=== PATIENT | male | born 1955 | race Caucasian/White ===

== ENCOUNTER 2018-03-18 13:57 | Inpatient (IN) ==
[2018-03-18] MEDS ORDERED: Ketorolac Inj 30 MG/ML (IVP) Vial IV.PUSH ONE (15:26)
[2018-03-18] MEDS ORDERED: Sod Chloride 0.9% Inj 1,000 ML IV.SIG SCH (15:30)
--- NOTE | 2018-03-18 15:57 | CT ---
EXAM DATE: 03/18/2018 3:29 PM EDT AGE/SEX: 62 years / Male INDICATIONS: Cephalgia. CLINICAL DATA: This is the patient's initial encounter. Patient reports that signs and symptoms have been present for 1 day and indicates a pain score of 3/10. MEDICAL/SURGICAL HISTORY: None. None. RADIATION DOSE: 67.44 CTDI (mGy) COMPARISON: No prior exams available for comparison. TECHNIQUE: CT of the head without contrast. Using automated exposure control and adjustment of the mA and/or kV according to patient size, radiation dose was kept as low as reasonably achievable to ob tain optimal diagnostic quality images. DICOM format image data is available electronically for revi ew and comparison. FINDINGS: Cerebrum: The ventricles are normal for age. No evidence of midline shift, mass lesion, hemorrhage or acute infarction. No extraaxial fluid collections are seen. Posterior Fossa: The cerebellum and brainstem are intact. The 4th ventricle is midline. The cerebe llopontine angle is unremarkable. Extracranial: The visualized portion of the orbits is intact. Skull: The calvaria is intact. No evidence of skull fracture. CONCLUSION: 1. Unremarkable examination. . Electronically signed by: Roberto Huynh MD 03/18/2018 3:56 PM EDT
[2018-03-18 16:45] LABS: Baso % (Auto) 0.4 % (0.0-2.0); Eos # (Auto) 0.1 th/mm3 (0.0-0.4); Eos % (Auto) 0.8 % (0.0-4.0); Hematocrit 43.7 % (39.0-51.0); Hemoglobin 14.6 gm/dL (13.0-17.0); Lymph # (Auto) 1.9 th/mm3 (1.0-4.8); Lymph % (Auto) 16.1 % (9.0-44.0); Mean Corpuscular HGB Conc 33.4 % (32.0-36.0); Mean Corpuscular Hemoglobin 29.9 pg (27.0-34.0); Mean Corpuscular Volume 89.7 fL (80.0-100.0); Mean Platelet Volume 8.1 fL (7.0-11.0); Mono # (Auto) 0.5 th/mm3 (0.0-0.9); Mono % (Auto) 4.6 % (0.0-8.0); Neut % (Auto) 78.1 % (16.0-70.0); Platelet Count 214 th/mm3 (150-450); Red Blood Count 4.87 mil/mm3 (4.50-5.90); Red Cell Distribution Width 13.5 % (11.6-17.2); White Blood Count 11.6 th/mm3 (4.0-11.0)
--- NOTE | 2018-03-18 16:51 | CT ---
EXAM DATE: 03/18/2018 3:29 PM EDT AGE/SEX: 62 years / Male INDICATIONS: Lower back pain. CLINICAL DATA: This is the patient's initial encounter. Patient reports that signs and symptoms have been present for 2 days and indicates a pain score of 5/10. MEDICAL/SURGICAL HISTORY: None. None. RADIATION DOSE: 33.88 CTDI (mGy) COMPARISON: No prior exams available for comparison. TECHNIQUE: Contiguous axial images were acquired with a multirow detector CT scanner without contras t. Multiplanar reconstructions in the sagittal and coronal plane were also performed. Using automate d exposure control and adjustment of the mA and/or kV according to patient size, radiation dose was k ept as low as reasonably achievable to obtain optimal diagnostic quality images. DICOM format image data is available electronically for review and comparison. FINDINGS: ALIGNMENT: Vertebral bodies are satisfactorily aligned without evidence of listhesis. FACET AND OSSEOUS STRUCTURES: Loss of height is noted of the T12 vertebral body. Vertebral body heig ht is otherwise well-maintained. There is no evidence of acute fracture, or destructive changes. Ther e is no significant facet arthropathy. INTERVERTEBRAL DISC SPACES: Mild degenerative disc disease with disc space narrowing is noted. Mild broad-based disc bulge is identified at L2-3. Mild degenerative disc disease is noted at L4-5 and L5-S1 with disc space narrowing and mild posterio r disc osteophyte complex. There is no evidence of focal disc herniation or foraminal encroachment. NEUROLOGIC STRUCTURES: The spinal cord and nerve roots appear normal. There is no evidence of joan milena. . CONCLUSION: 1. Mild degenerative disc disease. 2. No evidence of focal disc herniation, spinal stenosis or neural foraminal encroachment. 3. No evidence of acute bony abnormality 4. Mild chronic appearing compression deformity T12. Electronically signed by: Newton Kent MD 03/18/2018 4:49 PM EDT
[2018-03-18 17:03] LABS: Alanine Aminotransferase 28 U/L (12-78); Albumin 3.9 g/dL (3.4-5.0); Anion Gap 10 meq/L (5-15); Aspartate Aminotransferase 26 U/L (15-37); Blood Urea Nitrogen 8 mg/dL (7-18); Calcium 8.7 mg/dL (8.5-10.1); Carbon Dioxide 25.9 meq/L (21.0-32.0); Chloride 103 meq/L (98-107); Glomerular Filtration Rate 68 mL/min (>89); Glucose,Random 108 mg/dL (74-106); Potassium 3.9 meq/L (3.5-5.1); Sodium 139 meq/L (136-145)
[2018-03-18 17:05] LABS: Alkaline Phosphatase 65 U/L (45-117); Total Protein 7.8 g/dL (6.4-8.2)
--- NOTE | 2018-03-18 17:20 | ED ---
HPI General Chief Complaint: Headache Stated Complaint: Migraine/Lower back pain Time Seen by Provider: 03/18/18 14:58 Source: patient Mode of arrival: ambulatory Limitations: no limitations History of Present Illness HPI Narrative: 62-year-old male presents to the emergency department with complaint of severe headache and low back pain that started last night at approximately 6 PM. Denies history of headaches. He reports cold chills and subjective fever. He was sitting in a hotel last night and does not know if he had an actual fever because he did not have a thermometer to take his temperature. Cannot report a T-max. Denies chest pain or shortness of breath. Denies nausea, vomiting, diarrhea, abdominal pain. Denies IV drug use or cancer. Denies dysuria, change in stool. Denies encopresis, incontinence, saddle anesthesias. Headache is frontal to the back of his head. Denies change in mentation, confusion, disorientation, focal deficits or weakness, slurred speech. Reports numbness and tingling and pain that radiates down his left leg from his lower back. Denies history of sciatica or low back pain. Denies injury. Denies anticoagulant therapy. Has taken Tylenol without relief of symptoms. Rates pain 10/10. Pain is constant. No known relieving or aggravating factors. History of meningitis in 1994. Traveled to [facility] 8 weeks ago for 4 days. Primary care provider is Dr. Gonzalez. No known allergies. Denies significant past medical history. Has no other medical complaints. No other modifying factors or associated signs and symptoms. Related Data Home Medications Medication Instructions Recorded Confirmed No Known Home Medications 03/18/18 03/18/18 Allergies Allergy/AdvReac Type Severity Reaction Status Date / Time iodine Allergy Severe Anaphylaxis Unverified 02/06/17 02:29 potassium iodide Allergy Severe Anaphylaxis Unverified 02/06/17 02:29 povidone-iodine Allergy Severe Anaphylaxis Unverified 02/06/17 02:29 shellfish derived Allergy Severe Anaphylaxis Unverified 02/06/17 02:29 sodium iodide Allergy Severe Anaphylaxis Unverified 02/06/17 02:29 sodium iodide Allergy Severe Anaphylaxis Unverified 02/06/17 02:29 Review of Systems ROS: all other systems reviewed are negative [facility] Medical History Medical History Migraine (Acute) Surgical History Surgical History H/O rotator cuff surgery (Acute) Family History Family History Mother Alzheimer disease Father Advanced age Social History Social History Substance History: No History of Abuse Smoking Status: Never smoker How Often Do You Have a Drink Containing Alcohol: Monthly or less Recent Out of Country Travel within the Last 8 Weeks: Yes Immunization History Tetanus Immunization: >5 Years Hx Influenza Vaccine This Season: No Exam Narrative Exam Narrative: GENERAL: Well-nourished, well-developed male patient, in no acute distress; appears very painful and uncomfortable SKIN: Warm and dry. HEAD: Atraumatic. Normocephalic. No facial droop noted. Tongue midline. Shoulder shrug equal. Finger to nose test normal. EYES: Pupils equal and round at 3 mm with brisk reaction. No scleral icterus. No injection or drainage. PERRLA. EOMI. ENT: Mucosa pink and moist. Airway patent. NECK: Trachea midline. No lymphadenopathy. CARDIOVASCULAR: Regular rate. RESPIRATORY: No accessory muscle use. GASTROINTESTINAL: Flat. MUSCULOSKELETAL: Bilateral lower extremities supple and non-tense with 2+ pedal pulses and sensory intact; with full range of motion and 5/5 strength. Active dorsiflexion and extension of bilateral feet. Bilateral straight leg raise is positive for low back pain; worse left than right. Ambulatory in room with guarded gait. Sitting up in bed at 90. No obvious deformities. No clubbing. No cyanosis. No edema. BACK: Midline point tenderness on palpation of the lumbar spine. Tenderness on palpation of bilateral musculature of lower back; worse to left lumbar paraspinal and iliosacral area. No obvious deformities. NEUROLOGICAL: Awake and alert. Oriented 4. No obvious cranial nerve deficits. Motor grossly within normal limits. Normal speech. No ataxia. No mid -line drift. No upper or lower extremity drift. [employer] strength equal bilaterally. Sensory intact and equal bilaterally. Moves all extremities. Active plantar and dorsiflexion and strength equal bilaterally. 5/5 strength to all extremities. PSYCHIATRIC: Appropriate mood and affect; insight and judgment normal. Course Initial Documented Vital Signs Temperature 98.6 F 03/18/18 14:04 Pulse Rate 87 03/18/18 14:04 Respiratory Rate 18 03/18/18 14:04 Blood Pressure 186/86 H 03/18/18 14:04 Pulse Oximetry 99 03/18/18 14:04 Last Documented Vital Signs Temperature 98.6 F 03/18/18 14:04 Pulse Rate 87 03/18/18 14:04 Respiratory Rate 22 03/18/18 14:26 Blood Pressure 186/86 H 03/18/18 14:04 Pulse Oximetry 99 03/18/18 14:04 Medical Decision Making MDM Narrative Medical decision making narrative: 62-year-old male with severe headache, low back pain, hot and cold chills since approximately 6 PM last night. His neuro exam is unremarkable. He appears to be very painful and uncomfortable. He is afebrile. He has history of meningitis in 1994. He was recently in [facility], 8 weeks ago, for 4 days[address] D[address] patient with Dr. Weiss and plan of care discussed. CT head, CT lumbar spine, CBC, BMP, malaria smear, influenza, IV, IV fluids, Toradol ordered. Dr. Weiss will perform LP. 1700: CT head unremarkable. Dr. Weiss performed LP at the bedside. 1717: CT abdomen/pelvis conclude: mild degenerative disc disease.2. No evidence of focal disc herniation, spinal stenosis or neural foraminal encroachment.3. No evidence of acute bony abnormality4. Mild chronic appearing compression deformity T12. 1845: Lines and negative. Preliminary malaria smear negative. Patient was sign out to me Dr. Naseren Chacko to follow up on CSF results. CSF WBC 122. RBC 47. RBC has decreased to 6 in tube 4 so it is not subarachnoid hemorrhage. Protein is elevated at 141.7. Impression is more viral meningitis. Will cover with IV acyclovir for now and have ID evaluate patient. His headache had improved after toradol but is now returning. Pt did have a history of meningitis but does not know which type it was. Discussed with Dr. Ramos and accepted to his service. Medical Screen Exam Complete: Yes Emergency Medical Condition: Yes Lab Data Result diagrams: 03/18/18 16:15 03/18/18 16:15 Lab Results 03/18/18 03/18/18 03/18/18 Range/Units 16:15 16:15 17:15 WBC 11.6 H (4.0-11.0) th/mm3 RBC 4.87 (4.50-5.90) mil/mm3 Hgb 14.6 (13.0-17.0) gm/dL Hct 43.7 (39.0-51.0) % MCV 89.7 (80.0-100.0) fL MCH 29.9 (27.0-34.0) pg MCHC 33.4 (32.0-36.0) % RDW 13.5 (11.6-17.2) % Plt Count 214 (150-450) th/mm3 MPV 8.1 (7.0-11.0) fL Neut % (Auto) 78.1 H (16.0-70.0) % Lymph % (Auto) 16.1 (9.0-44.0) % Weld % (Auto) 4.6 (0.0-8.0) % Eos % (Auto) 0.8 (0.0-4.0) % Baso % (Auto) 0.4 (0.0-2.0) % Neut # (Auto) 9.0 H (1.8-7.7) th/mm3 Lymph # (Auto) 1.9 (1.0-4.8) th/mm3 Weld # (Auto) 0.5 (0.0-0.9) th/mm3 Eos # (Auto) 0.1 (0.0-0.4) th/mm3 Baso # (Auto) 0.0 (0.0-0.2) th/mm3 WBC Differential . Differential Comment Auto diff final Sodium 139 (136-145) meq/L Potassium 3.9 (3.5-5.1) meq/L Chloride 103 (98-107) meq/L Carbon Dioxide 25.9 (21.0-32.0) meq/L Anion Gap 10 (5-15) meq/L BUN 8 (7-18) mg/dL Creatinine 1.10 (0.60-1.30) mg/dL Estimated GFR 68 L (>89) mL/min Random Glucose 108 H (74-106) mg/dL Calcium 8.7 (8.5-10.1) mg/dL Total Bilirubin 0.6 (0.2-1.0) mg/dL AST 26 (15-37) U/L ALT 28 (12-78) U/L Alkaline Phosphatase 65 (45-117) U/L Total Protein 7.8 (6.4-8.2) g/dL Albumin 3.9 (3.4-5.0) g/dL CSF Volume (1) mL CSF Supernat Color (1) (Clear) CSF Gross Blood (1) (0) CSF WBC (1) (0-10) /mm3 CSF RBC (1) (None) /mm3 CSF Volume (2) mL CSF Supernat Color (2) (Clear) CSF Gross Blood (2) (0) CSF Volume (3) mL CSF Supernat Color (3) (Clear) CSF Gross Blood (3) (0) CSF Volume (4) mL CSF Supernat Color (4) (Clear) CSF Gross Blood (4) (0) CSF WBC (4) 127 H (0-10) /mm3 CSF RBC (4) 6 H (None) /mm3 CSF Neutrophils % % CSF Lymphocytes % % CSF Monocytes % % CSF Glucose (40-80) mg/dL CSF Total Protein (15.0-45.0) mg/dL 03/18/18 03/18/18 03/18/18 Range/Units 17:15 17:15 17:15 WBC (4.0-11.0) th/mm3 RBC (4.50-5.90) mil/mm3 Hgb (13.0-17.0) gm/dL Hct (39.0-51.0) % MCV (80.0-100.0) fL MCH (27.0-34.0) pg MCHC (32.0-36.0) % RDW (11.6-17.2) % Plt Count (150-450) th/mm3 MPV (7.0-11.0) fL Neut % (Auto) (16.0-70.0) % Lymph % (Auto) (9.0-44.0) % Weld % (Auto) (0.0-8.0) % Eos % (Auto) (0.0-4.0) % Baso % (Auto) (0.0-2.0) % Neut # (Auto) (1.8-7.7) th/mm3 Lymph # (Auto) (1.0-4.8) th/mm3 Weld # (Auto) (0.0-0.9) th/mm3 Eos # (Auto) (0.0-0.4) th/mm3 Baso # (Auto) (0.0-0.2) th/mm3 WBC Differential Differential Comment Sodium (136-145) meq/L Potassium (3.5-5.1) meq/L Chloride (98-107) meq/L Carbon Dioxide (21.0-32.0) meq/L Anion Gap (5-15) meq/L BUN (7-18) mg/dL Creatinine (0.60-1.30) mg/dL Estimated GFR (>89) mL/min Random Glucose (74-106) mg/dL Calcium (8.5-10.1) mg/dL Total Bilirubin (0.2-1.0) mg/dL AST (15-37) U/L ALT (12-78) U/L Alkaline Phosphatase (45-117) U/L Total Protein (6.4-8.2) g/dL Albumin (3.4-5.0) g/dL CSF Volume (1) 0.8 mL CSF Supernat Color (1) Clear (Clear) CSF Gross Blood (1) 0 (0) CSF WBC (1) 122 H (0-10) /mm3 CSF RBC (1) 47 H (None) /mm3 CSF Volume (2) 0.8 mL CSF Supernat Color (2) Clear (Clear) CSF Gross Blood (2) 0 (0) CSF Volume (3) 0.8 mL CSF Supernat Color (3) Clear (Clear) CSF Gross Blood (3) 0 (0) CSF Volume (4) 0.8 mL CSF Supernat Color (4) Clear (Clear) CSF Gross Blood (4) 0 (0) CSF WBC (4) 127 H (0-10) /mm3 CSF RBC (4) 6 H (None) /mm3 CSF Neutrophils % 4 % CSF Lymphocytes % 84 % CSF Monocytes % 12 % CSF Glucose 52 (40-80) mg/dL CSF Total Protein 141.7 H (15.0-45.0) mg/dL Imaging Data Radiologist's impression: Head CT 03/18/18 15:19 CONCLUSION: 1. Unremarkable examination. . Lumbar Spine CT 03/18/18 15:19 CONCLUSION: 1. Mild degenerative disc disease. 2. No evidence of focal disc herniation, spinal stenosis or neural foraminal encroachment. 3. No evidence of acute bony abnormality 4. Mild chronic appearing compression deformity T12. Discharge Plan Discharge Disposition Patient Disposition: 30 Still Patient Discharge Details Diagnosis: Viral meningitis Physicians Team ED Provider: Nasreen Chacko Primary Care Provider: Primary Care Deysi Kimble Attending Provider: Tom Ramos Other Providers: Rhea Pearson ; Percy Clemons Status ED Status: Admitted Observation Patient
[2018-03-18 19:15] LABS: RBC on Tube 4 6 /mm3
[2018-03-18 19:16] LABS: RBC on Tube 1 47 /mm3
[2018-03-18 19:19] LABS: Lymphocytes, CSF 84 %; Monocytes,CSF 12 %; Neutrophils,CSF 4 %
[2018-03-18 19:22] LABS: RBC on Tube 4 6 /mm3
[2018-03-18] MEDS: SODIUM CHLOR 0.9% IV.SIG SCH (20:56)
[2018-03-18] MEDS: ACYCLOVIR IV.SIG SCH (20:56)
[2018-03-18] MEDS ORDERED: Morphine Sulfate Inj 2 MG/ML Vial IV.PUSH ONE (22:21)
[2018-03-18] MEDS ORDERED: Sodium Chloride 0.9% 2 ML Flush PRN IV.FLUSH (22:25)
--- NOTE | 2018-03-18 22:33 | P.HPIM ---
History of Present Illness Primary Care Physician: No Primary Care Physician History of Present Illness: 52-year-old male with a history of meningitis in 1994 who presents with onset of progressively worsening headache described as throbbing whole head pain radiating down his back. He also endorses light sensitivity, subjective fevers since last night. He reports generalized weakness as well as weakness in bilateral legs. No focal symptoms. Review of Systems All other systems reviewed negative except as stated in HPI PMFSH - History History Provided By: Patient - Medical History Medical History: Medical History (Last Reviewed 03/18/18 @ 17:30 by DEON Barker) Migraine - Surgical History Surgical History: Surgical History (Last Updated 03/18/18 @ 22:28 by Tom Ramos MD) H/O rotator cuff surgery - Family History Family History: Family History (Last Updated 03/18/18 @ 22:28 by Tom Ramos MD) Mother Alzheimer disease Father Advanced age - Tobacco History Smoking Status: Never smoker - Alcohol History How Often Do You Have a Drink Containing Alcohol: Monthly or less - Substance Use History Substance History: No History of Abuse - Travel History Recent Travel Out of the Country Within the Last 8 Weeks: Yes - Immunization History Tetanus Immunization: >5 Years Hx Influenza Vaccine This Season: No Medications and Allergies Active Medications: Active Medications Sodium Chloride (Ns Inj) 1,000 mls @ 0 mls/hr IV.SIG BOLUS EZIO Last Infusion: 03/18/18 19:32 Dose: Infused Acyclovir Sodium 855 mg/ (Sodium Chloride) 167.1 mls @ 167.1 mls/hr IV.SIG Q8H EZIO Last Infusion: 03/18/18 22:14 Dose: Infused Morphine Sulfate (Morphine Inj) 2 mg IV.PUSH ONCE ONE Stop: 03/18/18 22:22 Allergies Allergy/AdvReac Type Severity Reaction Status Date / Time iodine Allergy Severe Anaphylaxis Unverified 02/06/17 02:29 potassium iodide Allergy Severe Anaphylaxis Unverified 02/06/17 02:29 povidone-iodine Allergy Severe Anaphylaxis Unverified 02/06/17 02:29 shellfish derived Allergy Severe Anaphylaxis Unverified 02/06/17 02:29 sodium iodide Allergy Severe Anaphylaxis Unverified 02/06/17 02:29 sodium iodide Allergy Severe Anaphylaxis Unverified 02/06/17 02:29 Home Medications Medication Instructions Recorded Confirmed Type No Known Home Medications 03/18/18 03/18/18 History Exam Vital signs: Vital Signs 03/18/18 14:04 03/18/18 14:26 Temperature 98.6 F Pulse Rate 87 Respiratory Rate 18 22 Blood Pressure 186/86 H Pulse Oximetry 99 Intake & Output 03/18/18 03/18/18 03/19/18 06:59 18:59 06:59 Intake Total 1167.1 / 1167.1 Balance 1167.1 / 1167.1 Weight 85.275 kg Intake: IV 1167.1 / 1167.1 Zovirax Inj 855 MG In NS Inj 167.1 / 167.1 150 ML @ 167.1 mls/hr IV.SIG Q8H EZIO Rx#:[id number] NS Inj 1,000 ML @ Wide Open IV. 1000 / 1000 SIG BOLUS EZIO Rx#:[id number] Narrative: GENERAL: Patient lying in bed. Appears uncomfortable. Alert and oriented 3. SKIN: Warm and dry. HEAD: Atraumatic. Normocephalic. EYES: Pupils equal and round. No scleral icterus. No injection or drainage. ENT: No nasal bleeding or discharge. Mucous membranes pink and moist. NECK: Trachea midline. No JVD. CARDIOVASCULAR: Regular rate and rhythm. RESPIRATORY: No accessory muscle use. Clear to auscultation. Breath sounds equal bilaterally. GASTROINTESTINAL: Abdomen soft, non-tender, nondistended. Hepatic and splenic margins not palpable. MUSCULOSKELETAL: Extremities without clubbing, cyanosis, or edema. No obvious deformities. NEUROLOGICAL: Awake and alert. No obvious cranial nerve deficits. Motor grossly within normal limits. Five out of 5 muscle strength in the arms and legs. Normal speech. PSYCHIATRIC: Appropriate mood and affect; insight and judgment normal. Results - Labs CBC & Chem 7: 03/18/18 16:15 03/18/18 16:15 Labs: Short CBC 03/18/18 Range/Units 16:15 WBC 11.6 H (4.0-11.0) th/mm3 Hgb 14.6 (13.0-17.0) gm/dL Hct 43.7 (39.0-51.0) % Plt Count 214 (150-450) th/mm3 BMP 03/18/18 16:15 Sodium 139 Potassium 3.9 Chloride 103 Carbon Dioxide 25.9 BUN 8 Creatinine 1.10 Calcium 8.7 Liver Function 03/18/18 Range/Units 16:15 Total Bilirubin 0.6 (0.2-1.0) mg/dL AST 26 (15-37) U/L ALT 28 (12-78) U/L Alkaline Phosphatase 65 (45-117) U/L Albumin 3.9 (3.4-5.0) g/dL - Imaging Impressions Head CT 03/18/18 15:19 CONCLUSION: 1. Unremarkable examination. . Lumbar Spine CT 03/18/18 15:19 CONCLUSION: 1. Mild degenerative disc disease. 2. No evidence of focal disc herniation, spinal stenosis or neural foraminal encroachment. 3. No evidence of acute bony abnormality 4. Mild chronic appearing compression deformity T12. Caprini VTE Risk Assessment Caprini VTE Risk Assessment: Moderate/High Risk (score >= 2) Caprini Risk Assessment Model: Point Value = 1 Point Value = 2 Point Value = 3 Point Value = 5 Age 41-60 Minor surgery BMI > 25 kg/m2 Swollen legs Varicose veins or History of unexplained or recurrent spontaneous Oral contraceptives or hormone replacement Sepsis (< 1 month) Serious lung disease, including pneumonia (< 1 month) Abnormal pulmonary function Acute myocardial infarction Congestive heart failure (< 1 month) History of inflammatory bowel disease Medical patient at bed rest Age 61-74 Arthroscopic surgery Major open surgery (> 45 min) Laparoscopic surgery (> 45 min) Malignancy Confined to bed (> 72 hours) Immobilizing plaster cast Central venous access Age >= 75 History of VTE Family history of VTE Factor V Leiden Prothrombin [id number] Lupus anticoagulant Anticardiolipin antibodies Elevated serum homocysteine Heparin-induced thrombocytopenia Other congenital or acquired thrombophilia Stroke (< 1 month) Elective arthroplasty Hip, pelvis, or leg fracture Acute spinal cord injury (< 1 month) Prophylaxis Regimen: Total Risk Factor Score Risk Level Prophylaxis Regimen 0-1 Low Early ambulation 2 Moderate Order ONE of the following: *Sequential Compression Device (SCD) *Heparin 5000 units SQ BID 3-4 Higher Order ONE of the following medications: *Heparin 5000 units SQ TID *Enoxaparin/Lovenox 40 mg SQ daily (WT < 150 kg, CrCl > 30 mL/min) *Enoxaparin/Lovenox 30 mg SQ daily (WT < 150 kg, CrCl > 10-29 mL/min) *Enoxaparin/Lovenox 30 mg SQ BID (WT < 150 kg, CrCl > 30 mL/min) AND/OR *Sequential Compression Device (SCD) 5 or more Highest Order ONE of the following medications: *Heparin 5000 units SQ TID (Preferred with Epidurals) *Enoxaparin/Lovenox 40 mg SQ daily (WT < 150 kg, CrCl > 30 mL/min) *Enoxaparin/Lovenox 30 mg SQ daily (WT < 150 kg, CrCl > 10-29 mL/min) *Enoxaparin/Lovenox 30 mg SQ BID (WT < 150 kg, CrCl > 30 mL/min) AND *Sequential Compression Device (SCD) Assessment and Plan - Plan //Suspected viral meningitis -CT brain with no acute findings. CT lumbar spine with no acute findings. Elevated WBCs, RBCs on CSF with elevated total protein. Will continue on acyclovir. Consult neurology and infectious disease. We will give pain meds when requested. = Followed by ID and neurology recommendations. //Accelerated hypertension. Systolic blood pressures of normal knees. Likely secondary to pain. Will add as needed BP meds. Monitor. Discussed Condition With: Patient, nurse, ED physician.
[2018-03-18] MEDS ORDERED: Bisacodyl 10 MG Supp RECTAL PRN (23:06)
[2018-03-19] MEDS ORDERED: Acetaminophen 325 MG Tablet PO PRN (02:45)
[2018-03-19] MEDS: Sod Chloride 0.9% Inj 1,000 ML IV.CONT SCH ×3 (02:46→20:29)
[2018-03-19] MEDS: SODIUM CHLOR 0.9% IV.SIG SCH ×3 (04:26→21:32)
[2018-03-19] MEDS: ACYCLOVIR IV.SIG SCH ×3 (04:26→21:32)
[2018-03-19 05:59] LABS: Baso # (Auto) 0.1 th/mm3 (0.0-0.2); Baso % (Auto) 0.6 % (0.0-2.0); Eos # (Auto) 0.1 th/mm3 (0.0-0.4); Hematocrit 38.6 % (39.0-51.0); Hemoglobin 13.1 gm/dL (13.0-17.0); Lymph # (Auto) 1.9 th/mm3 (1.0-4.8); Lymph % (Auto) 19.6 % (9.0-44.0); Mean Corpuscular Hemoglobin 30.5 pg (27.0-34.0); Mean Corpuscular Volume 89.7 fL (80.0-100.0); Mean Platelet Volume 7.8 fL (7.0-11.0); Mono # (Auto) 0.6 th/mm3 (0.0-0.9); Neut # (Auto) 7.2 th/mm3 (1.8-7.7); Neut % (Auto) 72.8 % (16.0-70.0); Platelet Count 163 th/mm3 (150-450); Red Cell Distribution Width 12.9 % (11.6-17.2); White Blood Count 9.8 th/mm3 (4.0-11.0)
[2018-03-19 06:35] LABS: Alanine Aminotransferase 22 U/L (12-78); Albumin 3.2 g/dL (3.4-5.0); Alkaline Phosphatase 52 U/L (45-117); Anion Gap 9 meq/L (5-15); Aspartate Aminotransferase 18 U/L (15-37); Blood Urea Nitrogen 10 mg/dL (7-18); Calcium 8.1 mg/dL (8.5-10.1); Carbon Dioxide 24.6 meq/L (21.0-32.0); Chloride 107 meq/L (98-107); Glomerular Filtration Rate 84 mL/min (>89); Glucose,Random 109 mg/dL (74-106); Potassium 3.6 meq/L (3.5-5.1); Sodium 141 meq/L (136-145); Total Protein 6.4 g/dL (6.4-8.2)
[2018-03-19] MEDS: Sodium Chloride 0.9% 2 ML Flush BID IV.FLUSH SCH ×2 (08:37→21:45)
--- NOTE | 2018-03-19 08:42 | P.CONNEU ---
History of Present Illness Service: Neurology Primary Care Provider: No Primary Care Physician Chief Complaint: Possible meningitis History of Present Illness: 62-year-old male admitted for headache and fevers. Onset about 24 hours prior to arrival. Having headache neck pain pain with turning his head side to side pain shooting down his back denies any sick contacts. States he had a similar episode many years ago cleared up. Feeling some dryness in his eyes although no vision loss does have photophobia denies any focal weakness. Has been having a lot of headache pain some spasm pain as well He is feeling better since arrival. Seen by infectious disease had a lumbar puncture performed. Review of Systems All other systems reviewed negative except as stated in HPI PMFSH - History History Provided By: Patient - Medical History Medical History: Medical History (Last Reviewed 03/19/18 @ 13:22 by Rhea Pearson MD) Migraine - Surgical History Surgical History: Surgical History (Last Reviewed 03/19/18 @ 13:22 by Rhea Pearson MD) H/O rotator cuff surgery - Family History Family History: Family History (Last Reviewed 03/19/18 @ 13:22 by Rhea Pearson MD) Mother Alzheimer disease Father Advanced age - Tobacco History Second Hand Smoke Exposure: No Tobacco Use In Past 30 Days: No Smoking Status: Never smoker - Alcohol History How Often Do You Have a Drink Containing Alcohol: 2 to 3 times a week - Substance Use History Substance History: No History of Abuse - Travel History Recent Travel in the [place] Within the Last 8 Weeks: Yes Recent Travel Out of the Country Within the Last 8 Weeks: Yes - Immunization History Tetanus Immunization: >5 Years Hx Influenza Vaccine This Season: No Medications and Allergies Active Medications: Active Medications Acetaminophen (Tylenol) 650 mg PO Q4H PRN PRN Reason: FEVER Last Admin: 03/19/18 02:55 Dose: 650 mg Al Hydroxide/Mg Hydroxide (Milk Of Magnquirino Liq) 30 ml PO Q12H PRN PRN Reason: Mild Constipation Bisacodyl (Dulcolax Supp) 10 mg RECTAL DAILY PRN PRN Reason: SEVERE CONSITIPATION Enalaprilat (Vasotec Inj) 1.25 mg IV.PUSH Q6H PRN PRN Reason: SBP>160, DBP>90 Sodium Chloride (Ns Inj) 1,000 mls @ 0 mls/hr IV.SIG BOLUS EZIO Last Infusion: 03/18/18 19:32 Dose: Infused Acyclovir Sodium 855 mg/ (Sodium Chloride) 167.1 mls @ 167.1 mls/hr IV.SIG Q8H [facility] Last Infusion: 03/19/18 05:27 Dose: Infused Sodium Chloride (Ns Inj) 1,000 mls @ 50 mls/hr IV.CONT .Q20H [facility] Last Admin: 03/19/18 02:56 Dose: 50 mls/hr Lactulose (Lactulose Liq) 30 ml PO DAILY PRN PRN Reason: SEVERE CONSITIPATION Sennosides (Senokot) 17.2 mg PO Q12H PRN PRN Reason: Moderate Constipation Sodium Chloride (Ns Flush) 2 ml IV.FLUSH BID [facility] Last Admin: 03/19/18 08:37 Dose: Not Given Sodium Chloride (Ns Flush) 2 ml IV.FLUSH PRN PRN PRN Reason: FLUSH AFTER USING IV ACCESS Allergies Allergy/AdvReac Type Severity Reaction Status Date / Time iodine Allergy Severe Anaphylaxis Unverified 02/06/17 02:29 potassium iodide Allergy Severe Anaphylaxis Unverified 02/06/17 02:29 povidone-iodine Allergy Severe Anaphylaxis Unverified 02/06/17 02:29 shellfish derived Allergy Severe Anaphylaxis Unverified 02/06/17 02:29 sodium iodide Allergy Severe Anaphylaxis Unverified 02/06/17 02:29 sodium iodide Allergy Severe Anaphylaxis Unverified 02/06/17 02:29 Home Medications Medication Instructions Recorded Confirmed Type No Known Home Medications 03/18/18 03/18/18 History Exam Vital signs: Vital Signs 03/18/18 14:04 03/18/18 14:26 03/19/18 00:59 Temperature 98.6 F 99.3 F Pulse Rate 87 79 Respiratory Rate 18 22 18 Blood Pressure 186/86 H 128/68 Pulse Oximetry 99 03/19/18 02:18 03/19/18 02:39 Temperature 101.4 F H Pulse Rate 77 81 Respiratory Rate 16 17 Blood Pressure 128/60 165/80 H Pulse Oximetry 97 Intake & Output 03/18/18 03/19/18 03/19/18 18:59 06:59 18:59 Intake Total 1334.2 / 1334.2 Balance 1334.2 / 1334.2 Weight 85.275 kg 85.275 kg Intake: IV 1334.2 / 1334.2 Zovirax Inj 855 MG In NS Inj 334.2 / 334.2 150 ML @ 167.1 mls/hr IV.SIG Q8H E[facility] Rx#:[id number] NS Inj 1,000 ML @ Wide Open IV. 1000 / 1000 SIG BOLUS EZIO Rx#:[id number] Other: # Voids 1 Weight On Admission 85.275 kg Narrative: GENERAL: in NAD, laying in the dark due to photophobia SKIN: Warm and dry. HEAD: Atraumatic. Normocephalic. EYES: Pupils equal and round. No scleral icterus. ENT: No nasal bleeding or discharge. Mucous membranes pink and moist. NECK: Trachea midline. No JVD. CARDIOVASCULAR: Regular rate and rhythm. RESPIRATORY: No accessory muscle use. GASTROINTESTINAL: Abdomen soft, non-tender, nondistended. MUSCULOSKELETAL: Extremities without clubbing, cyanosis, or edema. No obvious deformities. NEUROLOGICAL: Awake and alert. No aphasia, mild nuchal rigidity fluent articulate, No facial asymmetry, OU 3-2mm, eomi, VFF, No drift, Motor grossly within normal limits. Five out of 5 muscle strength in the arms and legs. Tone normal in all 4 limbs, Sensory normal, msr 1-2+ sym, no clonus, planterflexor, PSYCHIATRIC: Appropriate mood and affect; insight and judgment normal. - Constitutional no acute distress - Routine HEENT Exam Head: Present: normocephalic Results - Labs CBC & Chem 7: 03/19/18 05:41 03/19/18 05:41 Labs: Laboratory Results - last 24 hr 03/18/18 03/18/18 03/18/18 16:15 16:15 17:15 WBC 11.6 H RBC 4.87 Hgb 14.6 Hct 43.7 MCV 89.7 MCH 29.9 MCHC 33.4 RDW 13.5 Plt Count 214 MPV 8.1 Neut % (Auto) 78.1 H Lymph % (Auto) 16.1 [place] % (Auto) 4.6 Eos % (Auto) 0.8 Baso % (Auto) 0.4 Neut # (Auto) 9.0 H Lymph # (Auto) 1.9 [place] # (Auto) 0.5 Eos # (Auto) 0.1 Baso # (Auto) 0.0 WBC Differential . Differential Comment Auto diff final Sodium 139 Potassium 3.9 Chloride 103 Carbon Dioxide 25.9 Anion Gap 10 BUN 8 Creatinine 1.10 Estimated GFR 68 L Random Glucose 108 H Calcium 8.7 Total Bilirubin 0.6 AST 26 ALT 28 Alkaline Phosphatase 65 Total Protein 7.8 Albumin 3.9 CSF Volume (1) CSF Supernat Color (1) CSF Gross Blood (1) CSF WBC (1) CSF RBC (1) CSF Volume (2) CSF Supernat Color (2) CSF Gross Blood (2) CSF Volume (3) CSF Supernat Color (3) CSF Gross Blood (3) CSF Volume (4) CSF Supernat Color (4) CSF Gross Blood (4) CSF WBC (4) 127 H CSF RBC (4) 6 H CSF Neutrophils % CSF Lymphocytes % CSF Monocytes % CSF Glucose CSF Total Protein 03/18/18 03/18/18 03/18/18 17:15 17:15 17:15 WBC RBC Hgb Hct MCV MCH MCHC RDW Plt Count MPV Neut % (Auto) Lymph % (Auto) [place] % (Auto) Eos % (Auto) Baso % (Auto) Neut # (Auto) Lymph # (Auto) [place] # (Auto) Eos # (Auto) Baso # (Auto) WBC Differential Differential Comment Sodium Potassium Chloride Carbon Dioxide Anion Gap BUN Creatinine Estimated GFR Random Glucose Calcium Total Bilirubin AST ALT Alkaline Phosphatase Total Protein Albumin CSF Volume (1) 0.8 CSF Supernat Color (1) Clear CSF Gross Blood (1) 0 CSF WBC (1) 122 H CSF RBC (1) 47 H CSF Volume (2) 0.8 CSF Supernat Color (2) Clear CSF Gross Blood (2) 0 CSF Volume (3) 0.8 CSF Supernat Color (3) Clear CSF Gross Blood (3) 0 CSF Volume (4) 0.8 CSF Supernat Color (4) Clear CSF Gross Blood (4) 0 CSF WBC (4) 127 H CSF RBC (4) 6 H CSF Neutrophils % 4 CSF Lymphocytes % 84 CSF Monocytes % 12 CSF Glucose 52 CSF Total Protein 141.7 H 03/19/18 03/19/18 05:41 05:41 WBC 9.8 RBC 4.30 L Hgb 13.1 Hct 38.6 L MCV 89.7 MCH 30.5 MCHC 34.0 RDW 12.9 Plt Count 163 MPV 7.8 Neut % (Auto) 72.8 H Lymph % (Auto) 19.6 [place] % (Auto) 6.0 Eos % (Auto) 1.0 Baso % (Auto) 0.6 Neut # (Auto) 7.2 Lymph # (Auto) 1.9 [place] # (Auto) 0.6 Eos # (Auto) 0.1 Baso # (Auto) 0.1 WBC Differential . Differential Comment Auto diff final Sodium 141 Potassium 3.6 Chloride 107 Carbon Dioxide 24.6 Anion Gap 9 BUN 10 Creatinine 0.91 Estimated GFR 84 L Random Glucose 109 H Calcium 8.1 L Total Bilirubin 0.6 AST 18 ALT 22 Alkaline Phosphatase 52 Total Protein 6.4 D Albumin 3.2 L D CSF Volume (1) CSF Supernat Color (1) CSF Gross Blood (1) CSF WBC (1) CSF RBC (1) CSF Volume (2) CSF Supernat Color (2) CSF Gross Blood (2) CSF Volume (3) CSF Supernat Color (3) CSF Gross Blood (3) CSF Volume (4) CSF Supernat Color (4) CSF Gross Blood (4) CSF WBC (4) CSF RBC (4) CSF Neutrophils % CSF Lymphocytes % CSF Monocytes % CSF Glucose CSF Total Protein - Imaging Impressions Head CT 03/18/18 15:19 CONCLUSION: 1. Unremarkable examination. . Lumbar Spine CT 03/18/18 15:19 CONCLUSION: 1. Mild degenerative disc disease. 2. No evidence of focal disc herniation, spinal stenosis or neural foraminal encroachment. 3. No evidence of acute bony abnormality 4. Mild chronic appearing compression deformity T12. Review/Management - Diagnosis (1) Viral meningitis Code(s): A87.9 - Viral meningitis, unspecified Status: Acute Current Visit: Yes - Review/Management Plan: CSF with elevated WBC count, lymphocytic monocytosis, elevated protein and normal glucose. Low-grade fever headache and neck pain Suggestive of viral meningitis Recommendations Follow-up CSF studies Pain control Follow-up ID recommendations
--- NOTE | 2018-03-19 10:20 | P.PN ---
Subjective Interval history: Patient is doing well, reports improved GALLARDO since admission. Patient is tolerating PO, voiding/stooling well. Patient reports continued neck/back pain that improved after getting morphine last night but he prefers PO pain meds if possible. Physical Exam Vital signs: Vital Signs 03/18/18 14:04 03/18/18 14:26 03/19/18 00:59 Temperature 98.6 F 99.3 F Pulse Rate 87 79 Respiratory Rate 18 22 18 Blood Pressure 186/86 H 128/68 Pulse Oximetry 99 03/19/18 02:18 03/19/18 02:39 03/19/18 08:47 Temperature 101.4 F H 99.0 F Pulse Rate 77 81 67 Respiratory Rate 16 17 18 Blood Pressure 128/60 165/80 H 139/63 Pulse Oximetry 97 98 Intake & Output 03/18/18 03/19/18 03/19/18 18:59 06:59 18:59 Intake Total 1334.2 / 1334.2 Balance 1334.2 / 1334.2 Weight 85.275 kg 85.275 kg Intake: IV 1334.2 / 1334.2 Zovirax Inj 855 MG In NS Inj 334.2 / 334.2 150 ML @ 167.1 mls/hr IV.SIG Q8H [facility] Rx#:[id number] NS Inj 1,000 ML @ Wide Open IV. 1000 / 1000 SIG BOLUS EZIO Rx#:[id number] Other: # Voids 1 Weight On Admission 85.275 kg Narrative: GENERAL: well nourished male, in NAD SKIN: Warm and dry. HEAD: Normocephalic. EYES: No scleral icterus. No injection or drainage. NECK: Mildly tender to palpation, limited ROM due to pain. No JVD or lymphadenopathy. CARDIOVASCULAR: Regular rate and rhythm without murmurs, gallops, or rubs. RESPIRATORY: Breath sounds equal bilaterally. No accessory muscle use. GASTROINTESTINAL: Abdomen soft, non-tender, nondistended. MUSCULOSKELETAL: No cyanosis, or edema. BACK: Nontender without obvious deformity. No CVA tenderness. Results - Labs CBC & Chem 7: 03/19/18 05:41 03/19/18 05:41 Laboratory Results - last 24 hr 03/18/18 03/18/18 03/18/18 16:15 16:15 17:15 WBC 11.6 H RBC 4.87 Hgb 14.6 Hct 43.7 MCV 89.7 MCH 29.9 MCHC 33.4 RDW 13.5 Plt Count 214 MPV 8.1 Neut % (Auto) 78.1 H Lymph % (Auto) 16.1 [place] % (Auto) 4.6 Eos % (Auto) 0.8 Baso % (Auto) 0.4 Neut # (Auto) 9.0 H Lymph # (Auto) 1.9 [place] # (Auto) 0.5 Eos # (Auto) 0.1 Baso # (Auto) 0.0 WBC Differential . Differential Comment Auto diff final Sodium 139 Potassium 3.9 Chloride 103 Carbon Dioxide 25.9 Anion Gap 10 BUN 8 Creatinine 1.10 Estimated GFR 68 L Random Glucose 108 H Calcium 8.7 Total Bilirubin 0.6 AST 26 ALT 28 Alkaline Phosphatase 65 Total Protein 7.8 Albumin 3.9 CSF Volume (1) CSF Supernat Color (1) CSF Gross Blood (1) CSF WBC (1) CSF RBC (1) CSF Volume (2) CSF Supernat Color (2) CSF Gross Blood (2) CSF Volume (3) CSF Supernat Color (3) CSF Gross Blood (3) CSF Volume (4) CSF Supernat Color (4) CSF Gross Blood (4) CSF WBC (4) 127 H CSF RBC (4) 6 H CSF Neutrophils % CSF Lymphocytes % CSF Monocytes % CSF Glucose CSF Total Protein 03/18/18 03/18/18 03/18/18 17:15 17:15 17:15 WBC RBC Hgb Hct MCV MCH MCHC RDW Plt Count MPV Neut % (Auto) Lymph % (Auto) [place] % (Auto) Eos % (Auto) Baso % (Auto) Neut # (Auto) Lymph # (Auto) [place] # (Auto) Eos # (Auto) Baso # (Auto) WBC Differential Differential Comment Sodium Potassium Chloride Carbon Dioxide Anion Gap BUN Creatinine Estimated GFR Random Glucose Calcium Total Bilirubin AST ALT Alkaline Phosphatase Total Protein Albumin CSF Volume (1) 0.8 CSF Supernat Color (1) Clear CSF Gross Blood (1) 0 CSF WBC (1) 122 H CSF RBC (1) 47 H CSF Volume (2) 0.8 CSF Supernat Color (2) Clear CSF Gross Blood (2) 0 CSF Volume (3) 0.8 CSF Supernat Color (3) Clear CSF Gross Blood (3) 0 CSF Volume (4) 0.8 CSF Supernat Color (4) Clear CSF Gross Blood (4) 0 CSF WBC (4) 127 H CSF RBC (4) 6 H CSF Neutrophils % 4 CSF Lymphocytes % 84 CSF Monocytes % 12 CSF Glucose 52 CSF Total Protein 141.7 H 03/19/18 03/19/18 05:41 05:41 WBC 9.8 RBC 4.30 L Hgb 13.1 Hct 38.6 L MCV 89.7 MCH 30.5 MCHC 34.0 RDW 12.9 Plt Count 163 MPV 7.8 Neut % (Auto) 72.8 H Lymph % (Auto) 19.6 [place] % (Auto) 6.0 Eos % (Auto) 1.0 Baso % (Auto) 0.6 Neut # (Auto) 7.2 Lymph # (Auto) 1.9 [place] # (Auto) 0.6 Eos # (Auto) 0.1 Baso # (Auto) 0.1 WBC Differential . Differential Comment Auto diff final Sodium 141 Potassium 3.6 Chloride 107 Carbon Dioxide 24.6 Anion Gap 9 BUN 10 Creatinine 0.91 Estimated GFR 84 L Random Glucose 109 H Calcium 8.1 L Total Bilirubin 0.6 AST 18 ALT 22 Alkaline Phosphatase 52 Total Protein 6.4 D Albumin 3.2 L D CSF Volume (1) CSF Supernat Color (1) CSF Gross Blood (1) CSF WBC (1) CSF RBC (1) CSF Volume (2) CSF Supernat Color (2) CSF Gross Blood (2) CSF Volume (3) CSF Supernat Color (3) CSF Gross Blood (3) CSF Volume (4) CSF Supernat Color (4) CSF Gross Blood (4) CSF WBC (4) CSF RBC (4) CSF Neutrophils % CSF Lymphocytes % CSF Monocytes % CSF Glucose CSF Total Protein Microbiology 03/18/18 17:15 Lumbar Puncture Gram Stain - Final 03/18/18 17:15 Lumbar Puncture CSF Culture - Preliminary No growth in 24 hours 03/18/18 16:15 Blood - Peripheral Malaria Smear ([facility]) - Preliminary 03/18/18 17:00 Nasal Wash Influenza Types A,B Antigen - Final Negative for FLU A and B antigen Infection due to influenza A or B cannot be ruled out since the antigen present in the sample may be below the detection limit of the test. - Imaging Impressions Head CT 03/18/18 15:19 CONCLUSION: 1. Unremarkable examination. . Lumbar Spine CT 03/18/18 15:19 CONCLUSION: 1. Mild degenerative disc disease. 2. No evidence of focal disc herniation, spinal stenosis or neural foraminal encroachment. 3. No evidence of acute bony abnormality 4. Mild chronic appearing compression deformity T12. Assessment and Plan - Assessment (1) Viral meningitis Code(s): A87.9 - Viral meningitis, unspecified Status: Acute (2) Elevated blood pressure reading Code(s): R03.0 - Elevated blood-pressure reading, without diagnosis of hypertension Status: Acute - Plan 62-year-old male with no significant past medical history admitted for inpatient management of suspected viral meningitis, HD#2 1. Suspected viral meningitis -CT brain with no acute findings -CT lumbar spine with no acute findings -Leukocytosis on admission with -CSF Findings: Elevated WBCs, RBCs on CSF with elevated total protein -Pending further serology -Cont. Acyclovir IV Q8hrs -Tylenol w/ Codeine Qh6rs PRN pain (patient declines Morphine but does not want plain APAP) -Bld Cx pending -Neurology and Infectious Disease consulted, appreciate assistance with mgmt 2. Elevated BP -No previous Hx, not on meds -Improved, will cont. to monitor 3. Leukocytosis: resolved WBC 11.6 onadmission, 9.8 today Due to Meningitis Bld Cx pending 4. DVT PPX: SCD's 5. Dispo: F/U serology and ID/Neuro reccs Code Status: full Discussed Condition With: patient, RN
[2018-03-19] MEDS: Acetaminophen/Codeine 300/30 MG Tablet PO PRN ×2 (11:21→21:33)
--- NOTE | 2018-03-19 13:07 | P.CONID ---
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 with 122 WBC with lymphocyte predominance and neg g stain, no growth @ 24 hrs malaria stain neg States he had meningitis 30 yrs ago, cant recall what was causing it Review of Systems All other systems reviewed negative except as stated in HPI PMFSH - History History Provided By: Patient - Medical History Medical History: Medical History (Last Reviewed 03/19/18 @ 13:22 by Rhea Pearson MD) Migraine - Surgical History Surgical History: Surgical History (Last Reviewed 03/19/18 @ 13:22 by Rhea Pearson MD) H/O rotator cuff surgery - Family History Family History: Family History (Last Reviewed 03/19/18 @ 13:22 by Rhea Pearson MD) Mother Alzheimer disease Father Advanced age - Social History I have reviewed the patient's Social History: Yes - Tobacco History Second Hand Smoke Exposure: No Tobacco Use In Past 30 Days: No Smoking Status: Never smoker - Alcohol History How Often Do You Have a Drink Containing Alcohol: 2 to 3 times a week - Substance Use History Substance History: No History of Abuse - Travel History Recent Travel in the [place] Within the Last 8 Weeks: Yes Recent Travel Out of the Country Within the Last 8 Weeks: Yes - Immunization History Tetanus Immunization: >5 Years Hx Influenza Vaccine This Season: No Medications and Allergies Active Medications: Active Medications Acetaminophen/Codeine Phosphate (Tylenol W/Cod #3) 1 tab PO Q6H PRN PRN Reason: PAIN 1-10 AND/OR FEVER >101F Last Admin: 03/19/18 11:21 Dose: 1 tab Al Hydroxide/Mg Hydroxide (Milk Of Sharri Liq) 30 ml PO Q12H PRN PRN Reason: Mild Constipation Bisacodyl (Dulcolax Supp) 10 mg RECTAL DAILY PRN PRN Reason: SEVERE CONSITIPATION Enalaprilat (Vasotec Inj) 1.25 mg IV.PUSH Q6H PRN PRN Reason: SBP>160, DBP>90 Sodium Chloride (Ns Inj) 1,000 mls @ 0 mls/hr IV.SIG BOLUS [facility] Last Infusion: 03/18/18 19:32 Dose: Infused Acyclovir Sodium 855 mg/ (Sodium Chloride) 167.1 mls @ 167.1 mls/hr IV.SIG Q8H [facility] Last Infusion: 03/19/18 05:27 Dose: Infused Sodium Chloride (Ns Inj) 1,000 mls @ 50 mls/hr IV.CONT .Q20H [facility] Last Admin: 03/19/18 02:56 Dose: 50 mls/hr Lactulose (Lactulose Liq) 30 ml PO DAILY PRN PRN Reason: SEVERE CONSITIPATION Sennosides (Senokot) 17.2 mg PO Q12H PRN PRN Reason: Moderate Constipation Sodium Chloride (Ns Flush) 2 ml IV.FLUSH BID [facility] Last Admin: 03/19/18 08:37 Dose: Not Given Sodium Chloride (Ns Flush) 2 ml IV.FLUSH PRN PRN PRN Reason: FLUSH AFTER USING IV ACCESS Allergies Allergy/AdvReac Type Severity Reaction Status Date / Time iodine Allergy Severe Anaphylaxis Unverified 02/06/17 02:29 potassium iodide Allergy Severe Anaphylaxis Unverified 02/06/17 02:29 povidone-iodine Allergy Severe Anaphylaxis Unverified 02/06/17 02:29 shellfish derived Allergy Severe Anaphylaxis Unverified 02/06/17 02:29 sodium iodide Allergy Severe Anaphylaxis Unverified 02/06/17 02:29 sodium iodide Allergy Severe Anaphylaxis Unverified 02/06/17 02:29 Home Medications Medication Instructions Recorded Confirmed Type No Known Home Medications 03/18/18 03/18/18 History Exam Vital signs: Vital Signs 03/18/18 14:04 03/18/18 14:26 03/19/18 00:59 Temperature 98.6 F 99.3 F Pulse Rate 87 79 Respiratory Rate 18 22 18 Blood Pressure 186/86 H 128/68 Pulse Oximetry 99 03/19/18 02:18 03/19/18 02:39 03/19/18 08:47 Temperature 101.4 F H 99.0 F Pulse Rate 77 81 67 Respiratory Rate 16 17 18 Blood Pressure 128/60 165/80 H 139/63 Pulse Oximetry 97 98 03/19/18 11:42 03/19/18 12:40 Temperature 99.0 F Pulse Rate 67 Respiratory Rate 18 16 Blood Pressure 129/68 Pulse Oximetry 96 Intake & Output 03/18/18 03/19/18 03/19/18 18:59 06:59 18:59 Intake Total 1334.2 / 1334.2 Balance 1334.2 / 1334.2 Weight 85.275 kg 85.275 kg Intake: IV 1334.2 / 1334.2 Zovirax Inj 855 MG In NS Inj 334.2 / 334.2 150 ML @ 167.1 mls/hr IV.SIG Q8H [facility] Rx#:[id number] NS Inj 1,000 ML @ Wide Open IV. 1000 / 1000 SIG BOLUS [facility] Rx#:[id number] Other: # Voids 1 Weight On Admission 85.275 kg - Constitutional no acute distress, average body habitus - Routine HEENT Exam Head: Present: normocephalic, atraumatic, scalp tenderness Eye: Present: EOMI ENT: Present: mucous membranes moist, oropharynx clear - Routine Neck Exam Present: supple, full ROM - Routine Respiratory Exam Present: CTA bilaterally. Absent: accessory muscle use, decreased breath sounds , rhonchi - Routine Cardiovascular Exam Present: RRR, S1, S2. Absent: murmur, gallop, rubs - Routine Abdominal Exam Present: soft, normoactive bowel sounds. Absent: tenderness, distended, organomegaly, mass - Routine Extremities Exam Absent: cyanosis, clubbing, edema - Routine Skin Exam Present: dry, warm. Absent: intact, rash - Routine Neurological Exam Present: alert, oriented X3, CN II-XII intact, moving all extremities, vision grossly intact, hearing grossly intact, normal speech - Routine Psychiatric Exam Present: normal affect, normal thought process, cooperative Results - Labs CBC & Chem 7: 03/19/18 05:41 03/19/18 05:41 Labs: Laboratory Results - last 24 hr 03/18/18 03/18/18 03/18/18 16:15 16:15 17:15 WBC 11.6 H RBC 4.87 Hgb 14.6 Hct 43.7 MCV 89.7 MCH 29.9 MCHC 33.4 RDW 13.5 Plt Count 214 MPV 8.1 Neut % (Auto) 78.1 H Lymph % (Auto) 16.1 [place] % (Auto) 4.6 Eos % (Auto) 0.8 Baso % (Auto) 0.4 Neut # (Auto) 9.0 H Lymph # (Auto) 1.9 [place] # (Auto) 0.5 Eos # (Auto) 0.1 Baso # (Auto) 0.0 WBC Differential . Differential Comment Auto diff final Sodium 139 Potassium 3.9 Chloride 103 Carbon Dioxide 25.9 Anion Gap 10 BUN 8 Creatinine 1.10 Estimated GFR 68 L Random Glucose 108 H Calcium 8.7 Total Bilirubin 0.6 AST 26 ALT 28 Alkaline Phosphatase 65 Total Protein 7.8 Albumin 3.9 CSF Volume (1) CSF Supernat Color (1) CSF Gross Blood (1) CSF WBC (1) CSF RBC (1) CSF Volume (2) CSF Supernat Color (2) CSF Gross Blood (2) CSF Volume (3) CSF Supernat Color (3) CSF Gross Blood (3) CSF Volume (4) CSF Supernat Color (4) CSF Gross Blood (4) CSF WBC (4) 127 H CSF RBC (4) 6 H CSF Neutrophils % CSF Lymphocytes % CSF Monocytes % CSF Glucose CSF Total Protein 03/18/18 03/18/18 03/18/18 17:15 17:15 17:15 WBC RBC Hgb Hct MCV MCH MCHC RDW Plt Count MPV Neut % (Auto) Lymph % (Auto) [place] % (Auto) Eos % (Auto) Baso % (Auto) Neut # (Auto) Lymph # (Auto) [place] # (Auto) Eos # (Auto) Baso # (Auto) WBC Differential Differential Comment Sodium Potassium Chloride Carbon Dioxide Anion Gap BUN Creatinine Estimated GFR Random Glucose Calcium Total Bilirubin AST ALT Alkaline Phosphatase Total Protein Albumin CSF Volume (1) 0.8 CSF Supernat Color (1) Clear CSF Gross Blood (1) 0 CSF WBC (1) 122 H CSF RBC (1) 47 H CSF Volume (2) 0.8 CSF Supernat Color (2) Clear CSF Gross Blood (2) 0 CSF Volume (3) 0.8 CSF Supernat Color (3) Clear CSF Gross Blood (3) 0 CSF Volume (4) 0.8 CSF Supernat Color (4) Clear CSF Gross Blood (4) 0 CSF WBC (4) 127 H CSF RBC (4) 6 H CSF Neutrophils % 4 CSF Lymphocytes % 84 CSF Monocytes % 12 CSF Glucose 52 CSF Total Protein 141.7 H 03/19/18 03/19/18 05:41 05:41 WBC 9.8 RBC 4.30 L Hgb 13.1 Hct 38.6 L MCV 89.7 MCH 30.5 MCHC 34.0 RDW 12.9 Plt Count 163 MPV 7.8 Neut % (Auto) 72.8 H Lymph % (Auto) 19.6 [place] % (Auto) 6.0 Eos % (Auto) 1.0 Baso % (Auto) 0.6 Neut # (Auto) 7.2 Lymph # (Auto) 1.9 [place] # (Auto) 0.6 Eos # (Auto) 0.1 Baso # (Auto) 0.1 WBC Differential . Differential Comment Auto diff final Sodium 141 Potassium 3.6 Chloride 107 Carbon Dioxide 24.6 Anion Gap 9 BUN 10 Creatinine 0.91 Estimated GFR 84 L Random Glucose 109 H Calcium 8.1 L Total Bilirubin 0.6 AST 18 ALT 22 Alkaline Phosphatase 52 Total Protein 6.4 D Albumin 3.2 L D CSF Volume (1) CSF Supernat Color (1) CSF Gross Blood (1) CSF WBC (1) CSF RBC (1) CSF Volume (2) CSF Supernat Color (2) CSF Gross Blood (2) CSF Volume (3) CSF Supernat Color (3) CSF Gross Blood (3) CSF Volume (4) CSF Supernat Color (4) CSF Gross Blood (4) CSF WBC (4) CSF RBC (4) CSF Neutrophils % CSF Lymphocytes % CSF Monocytes % CSF Glucose CSF Total Protein - Imaging Impressions Head CT 03/18/18 15:19 CONCLUSION: 1. Unremarkable examination. . Lumbar Spine CT 03/18/18 15:19 CONCLUSION: 1. Mild degenerative disc disease. 2. No evidence of focal disc herniation, spinal stenosis or neural foraminal encroachment. 3. No evidence of acute bony abnormality 4. Mild chronic appearing compression deformity T12. Assessment and Plan - Plan Viral meningitis - sp travel to [facility] (stayed in hotel, denies exposures aboutn 8 wks ago) Rec's: dc acyvlovir once neg HSV monitor clinically If self limited will not escalate the w/u
[2018-03-20] MEDS: ACYCLOVIR IV.SIG SCH ×3 (05:16→20:43)
[2018-03-20] MEDS: SODIUM CHLOR 0.9% IV.SIG SCH ×3 (05:16→20:43)
[2018-03-20 05:23] LABS: Baso # (Auto) 0.1 th/mm3 (0.0-0.2); Baso % (Auto) 0.9 % (0.0-2.0); Eos # (Auto) 0.3 th/mm3 (0.0-0.4); Eos % (Auto) 3.3 % (0.0-4.0); Hemoglobin 13.1 gm/dL (13.0-17.0); Lymph # (Auto) 2.6 th/mm3 (1.0-4.8); Lymph % (Auto) 27.2 % (9.0-44.0); Mean Corpuscular HGB Conc 33.6 % (32.0-36.0); Mean Corpuscular Hemoglobin 30.2 pg (27.0-34.0); Mean Corpuscular Volume 90.1 fL (80.0-100.0); Mean Platelet Volume 8.1 fL (7.0-11.0); Mono # (Auto) 0.7 th/mm3 (0.0-0.9); Mono % (Auto) 7.2 % (0.0-8.0); Neut # (Auto) 5.8 th/mm3 (1.8-7.7); Neut % (Auto) 61.4 % (16.0-70.0); Platelet Count 168 th/mm3 (150-450); Red Blood Count 4.33 mil/mm3 (4.50-5.90); Red Cell Distribution Width 13.3 % (11.6-17.2); White Blood Count 9.4 th/mm3 (4.0-11.0)
[2018-03-20] MEDS: Acetaminophen/Codeine 300/30 MG Tablet PO PRN ×3 (05:26→21:31)
[2018-03-20 05:46] LABS: Albumin 3.4 g/dL (3.4-5.0); Anion Gap 5 meq/L (5-15); Aspartate Aminotransferase 26 U/L (15-37); Blood Urea Nitrogen 10 mg/dL (7-18); Calcium 7.8 mg/dL (8.5-10.1); Carbon Dioxide 27.3 meq/L (21.0-32.0); Chloride 108 meq/L (98-107); Glomerular Filtration Rate 80 mL/min (>89); Glucose,Random 104 mg/dL (74-106); Potassium 3.8 meq/L (3.5-5.1); Sodium 140 meq/L (136-145)
[2018-03-20 05:47] LABS: Alanine Aminotransferase 34 U/L (12-78)
[2018-03-20 05:49] LABS: Alkaline Phosphatase 53 U/L (45-117); Total Protein 6.8 g/dL (6.4-8.2)
--- NOTE | 2018-03-20 07:22 | P.PN ---
Subjective Interval history: Patient doing well, tolerating PO, voiding/stooling well. Reports GALLARDO improves with Tylenol. No overnight concerns. Physical Exam Vital signs: Vital Signs 03/19/18 08:47 03/19/18 11:42 03/19/18 12:40 Temperature 99.0 F 99.0 F Pulse Rate 67 67 Respiratory Rate 18 18 16 Blood Pressure 139/63 129/68 Pulse Oximetry 98 96 03/19/18 16:55 03/19/18 20:00 03/20/18 00:00 Temperature 98.8 F 101.1 F H 99.4 F Pulse Rate 67 77 65 Respiratory Rate 18 17 17 Blood Pressure 121/65 138/70 104/51 L Pulse Oximetry 96 96 95 03/20/18 04:00 Temperature 99.6 F Pulse Rate 66 Respiratory Rate 16 Blood Pressure 146/74 H Pulse Oximetry 98 Intake & Output 03/19/18 03/20/18 03/20/18 18:59 06:59 18:59 Intake Total 167.1 / 167.1 1501.1 / 1501.1 Balance 167.1 / 167.1 1501.1 / 1501.1 Intake: IV 167.1 / 167.1 1501.1 / 1501.1 NS Inj 1,000 ML @ 50 mls/hr IV. 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 Acyclovir IV Q8hrs -Tylenol w/ Codeine Qh6rs PRN pain (patient declines Morphine but does not want plain APAP) -Bld Cx pending -Neurology and Infectious Disease consulted, appreciate assistance with mgmt 2. Elevated BP -No previous Hx, not on meds -Improved, will cont. to monitor 3. Leukocytosis: resolved WBC 11.6 on admission, 9.8 today Due to Meningitis Bld Cx pending 4. DVT PPX: SCD's 5. Dispo: Cont. Acyclovir, F/U remaining serology and ID/Neuro reccs Results - Labs CBC & Chem 7: 03/20/18 04:30 03/20/18 04:30 Laboratory Results - last 24 hr 03/20/18 03/20/18 04:30 04:30 WBC 9.4 RBC 4.33 L Hgb 13.1 Hct 39.0 MCV 90.1 MCH 30.2 MCHC 33.6 RDW 13.3 Plt Count 168 MPV 8.1 Neut % (Auto) 61.4 Lymph % (Auto) 27.2 [place] % (Auto) 7.2 Eos % (Auto) 3.3 Baso % (Auto) 0.9 Neut # (Auto) 5.8 Lymph # (Auto) 2.6 [place] # (Auto) 0.7 Eos # (Auto) 0.3 Baso # (Auto) 0.1 WBC Differential . Differential Comment Auto diff final Sodium 140 Potassium 3.8 Chloride 108 H Carbon Dioxide 27.3 Anion Gap 5 BUN 10 Creatinine 0.95 Estimated GFR 80 L Random Glucose 104 Calcium 7.8 L Total Bilirubin 0.4 AST 26 ALT 34 Alkaline Phosphatase 53 C-Reactive Protein Less than 0.29 Total Protein 6.8 Albumin 3.4 Microbiology 03/18/18 17:15 Lumbar Puncture Gram Stain - Final 03/18/18 17:15 Lumbar Puncture CSF Culture - Preliminary No growth in 24 hours Assessment and Plan - Assessment (1) Viral meningitis Code(s): A87.9 - Viral meningitis, unspecified Status: Acute (2) Elevated blood pressure reading Code(s): R03.0 - Elevated blood-pressure reading, without diagnosis of hypertension Status: Acute - Plan 62-year-old male with no significant past medical history admitted for inpatient management of suspected viral meningitis, HD#3 1. Suspected viral meningitis -CT brain with no acute findings -CT lumbar spine with no acute findings -Leukocytosis on admission with -CSF Findings: Elevated WBCs, RBCs on CSF with elevated total protein -CSF Cx: NG @24hrs, Gram stain many WBC's, no organisms -Neg Malaria smear (pre-[place]) -Pending further serology -Cont. Acyclovir IV Q8hrs -Tylenol w/ Codeine Qh6rs PRN pain (patient declines Morphine but does not want plain APAP) -Bld Cx pending -Neurology and Infectious Disease consulted, appreciate assistance with mgmt 2. Elevated BP: improved overnight -No previous Hx, not on meds -Will cont. to monitor 3. Leukocytosis: resolved WBC 11.6 on admission, 9.4 today Due to Meningitis Bld Cx pending 4. DVT PPX: SCD's 5. Dispo: F/U serology and ID/Neuro reccs Code Status: full Discussed Condition With: patient, RN
--- NOTE | 2018-03-20 10:01 | MR ---
EXAM DATE: 03/20/2018 8:07 AM EDT AGE/SEX: 62 years / Male INDICATIONS: Meningitis. Back pain. CLINICAL DATA: This is the patient's subsequent encounter. Patient reports that signs and symptoms h ave been present for 2 days and indicates a pain score of 3/10. MEDICAL/SURGICAL HISTORY: . migraines . rotator cuff surgery COMPARISON: [facility], MR CERVICAL SPINE W/O CONTRAST, 01/26/2016. . TECHNIQUE: Multiplanar, multisequence MRI of the thoracic spine was performed without and with 8.5 m l Gadavist (gadobutrol) contrast as a single exam dose. FINDINGS: VERTEBRAE: Normal vertebral body height. Homogeneous marrow signal. Diffuse disc desiccation. ALIGNMENT: Normal. CORD: Normal position and configuration. POST-CONTRAST: No abnormal areas of enhancement are seen. T1-T2: Normal. T2-T3: The thecal sac has a normal diameter. No evidence of disc bulge or protrusion. T3-T4: The thecal sac has a normal diameter. No evidence of disc bulge or protrusion. T4-T5: The thecal sac has a normal diameter. No evidence of disc bulge or protrusion. T5-T6: The thecal sac has a normal diameter. No evidence of disc bulge or protrusion. T6-T7: Left paracentral posterior disc osteophytes effacing the left lateral recess. There is some f lattening of the left cord without significant cord signal abnormality. No significant neural foramin al stenosis. T7-T8: The thecal sac has a normal diameter. No evidence of disc bulge or protrusion. T8-T9: Right paracentral disc osteophyte complex effacing the anterior right lateral recess. No sign ificant neural foraminal stenosis. T9-T10: Left paracentral posterior disc osteophytes effacing the anterior left lateral recess. There is residual CSF signal anterior to the cord. No significant neural foraminal stenosis. T10-T11: Left paracentral disc protrusion effacing the left anterior lateral recess. There is residu al CSF signal anterior to the cord. No significant neural foraminal stenosis. T11-T12: The thecal sac has a normal diameter. No evidence of disc bulge or protrusion. T12-L1: The thecal sac has a normal diameter. No evidence of disc bulge or protrusion. CONCLUSION: 1. No abnormal contrast enhancement or cord signal abnormality. 2. Multilevel degenerative spondylosis with primarily left-sided paracentral disc protrusions and os teophytes resulting in effacement of the left lateral recess most prominently at T6-7 with mass effec t on the cord but no significant cord edema. 3. Please see above for detailed description of each level. Electronically signed by: Micah Pelaez MD 03/20/2018 10:00 AM EDT
[2018-03-20] MEDS ORDERED: Gadobutrol PF 10 MMOL/10 ML Vial (for RAD) IV.SIG ONE (10:50)
[2018-03-20] MEDS: Sodium Chloride 0.9% 2 ML Flush BID IV.FLUSH SCH ×2 (11:50→20:44)
--- NOTE | 2018-03-20 14:48 | P.PNID ---
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 no fever improved GALLARDO denies any genital lesions Antibiotics: acyclovir Allergies/Adverse Reactions: Allergies iodine Allergy (Severe, Verified 03/20/18 13:55) Anaphylaxis potassium iodide Allergy (Severe, Verified 03/20/18 13:55) Anaphylaxis povidone-iodine Allergy (Severe, Verified 03/20/18 13:55) Anaphylaxis shellfish derived Allergy (Severe, Verified 03/20/18 13:55) Anaphylaxis sodium iodide Allergy (Severe, Verified 03/20/18 13:55) Anaphylaxis sodium iodide Allergy (Severe, Verified 03/20/18 13:55) Anaphylaxis Objective Vital Signs 03/19/18 16:55 03/19/18 20:00 03/20/18 00:00 Temperature 98.8 F 101.1 F H 99.4 F Pulse Rate 67 77 65 Respiratory Rate 18 17 17 Blood Pressure 121/65 138/70 104/51 L Pulse Oximetry 96 96 95 03/20/18 04:00 03/20/18 08:45 03/20/18 12:04 Temperature 99.6 F 98.5 F 98.2 F Pulse Rate 66 68 70 Respiratory Rate 16 16 18 Blood Pressure 146/74 H 155/70 H 136/75 Pulse Oximetry 98 98 98 Intake & Output 03/19/18 03/20/18 03/20/18 18:59 06:59 18:59 Intake Total 167.1 / 167.1 1501.1 / 1501.1 Balance 167.1 / 167.1 1501.1 / 1501.1 Intake: IV 167.1 / 167.1 1501.1 / 1501.1 NS Inj 1,000 ML @ 50 mls/hr IV. 1000 / 1000 CONT .Q20H [facility] Rx#:[id number] Zovirax Inj 855 MG In NS Inj 167.1 / 167.1 501.1 / 501.1 150 ML @ 167.1 mls/hr IV.SIG Q8H [facility] Rx#:[id number] Other: # Voids 3 03/19/18 10:43 Blood - Peripheral Aerobic Blood Culture - Preliminary No growth in 1 day 03/19/18 10:43 Blood - Peripheral Anaerobic Blood Culture - Preliminary No growth in 1 day 03/19/18 10:37 Blood - Peripheral Aerobic Blood Culture - Preliminary No growth in 1 day 03/19/18 10:37 Blood - Peripheral Anaerobic Blood Culture - Preliminary No growth in 1 day 03/18/18 17:15 Lumbar Puncture Gram Stain - Final 03/18/18 17:15 Lumbar Puncture CSF Culture - Preliminary No growth in 48 hours 03/18/18 16:15 Blood - Peripheral Malaria Smear ([facility]) - Preliminary 03/18/18 17:00 Nasal Wash Influenza Types A,B Antigen - Final Negative for FLU A and B antigen Infection due to influenza A or B cannot be ruled out since the antigen present in the sample may be below the detection limit of the test. Lab - Hematology Results 03/18/18 03/19/18 03/20/18 16:15 05:41 04:30 WBC 11.6 H 9.8 9.4 RBC 4.87 4.30 L 4.33 L Hgb 14.6 13.1 13.1 Hct 43.7 38.6 L 39.0 MCV 89.7 89.7 90.1 MCH 29.9 30.5 30.2 MCHC 33.4 34.0 33.6 RDW 13.5 12.9 13.3 Plt Count 214 163 168 MPV 8.1 7.8 8.1 Neut % (Auto) 78.1 H 72.8 H 61.4 Lymph % (Auto) 16.1 19.6 27.2 Walsh % (Auto) 4.6 6.0 7.2 Eos % (Auto) 0.8 1.0 3.3 Baso % (Auto) 0.4 0.6 0.9 Neut # (Auto) 9.0 H 7.2 5.8 Lymph # (Auto) 1.9 1.9 2.6 Walsh # (Auto) 0.5 0.6 0.7 Eos # (Auto) 0.1 0.1 0.3 Baso # (Auto) 0.0 0.1 0.1 WBC Differential . . . Differential Comment Auto diff final Auto diff final Auto diff final Lab - Chemistry Results 03/18/18 03/19/18 03/20/18 16:15 05:41 04:30 Sodium 139 141 140 Potassium 3.9 3.6 3.8 Chloride 103 107 108 H Carbon Dioxide 25.9 24.6 27.3 Anion Gap 10 9 5 BUN 8 10 10 Creatinine 1.10 0.91 0.95 Estimated GFR 68 L 84 L 80 L Random Glucose 108 H 109 H 104 Calcium 8.7 8.1 L 7.8 L Total Bilirubin 0.6 0.6 0.4 AST 26 18 26 ALT 28 22 34 Alkaline Phosphatase 65 52 53 C-Reactive Protein Less than 0.29 Total Protein 7.8 6.4 D 6.8 Albumin 3.9 3.2 L D 3.4 Imaging: ITS Impressions Head CT 03/18/18 15:19 CONCLUSION: 1. Unremarkable examination. . Lumbar Spine CT 03/18/18 15:19 CONCLUSION: 1. Mild degenerative disc disease. 2. No evidence of focal disc herniation, spinal stenosis or neural foraminal encroachment. 3. No evidence of acute bony abnormality 4. Mild chronic appearing compression deformity T12. Thoracic Spine MRI 03/20/18 00:00 CONCLUSION: 1. No abnormal contrast enhancement or cord signal abnormality. 2. Multilevel degenerative spondylosis with primarily left-sided paracentral disc protrusions and osteophytes resulting in effacement of the left lateral recess most prominently at T6-7 with mass effect on the cord but no significant cord edema. 3. Please see above for detailed description of each level. Physical Exam: GENERAL: NAD SKIN: Warm and dry. HEAD: Atraumatic. Normocephalic. EYES: Pupils equal and round. No scleral icterus. No injection or drainage. ENT: No nasal bleeding or discharge. Mucous membranes pink and moist. NECK: Trachea midline. Supple CARDIOVASCULAR: Regular rate and rhythm. RESPIRATORY: No accessory muscle use. Clear to auscultation. Breath sounds equal bilaterally. GASTROINTESTINAL: Abdomen soft, non-tender, nondistended. Hepatic and splenic margins not palpable. MUSCULOSKELETAL: Extremities without clubbing, cyanosis, or edema. No obvious deformities. NEUROLOGICAL: Awake and alert. Non focal PSYCHIATRIC: Appropriate mood and affect; insight and judgment normal. Assessment and Plan - Plan HSV meningitis - sp travel to [facility] (stayed in hotel, denies exposures aboutn 8 wks ago) Rec's: cont acyvlovir @ current dose can be switched to an oral agent on discharge for a total of 10 to 14 days of treatment monitor clinically dw Dr Doll
[2018-03-20] MEDS: Sod Chloride 0.9% Inj 1,000 ML IV.CONT SCH (15:56)
[2018-03-21 01:29] VITALS: TEMP 98
[2018-03-21] MEDS: Acetaminophen/Codeine 300/30 MG Tablet PO PRN ×2 (02:02→10:43)
[2018-03-21] MEDS: SODIUM CHLOR 0.9% IV.SIG SCH ×2 (05:44→13:00)
[2018-03-21] MEDS: ACYCLOVIR IV.SIG SCH ×2 (05:44→13:00)
[2018-03-21 09:07] VITALS: RESP 16
[2018-03-21] MEDS: Sodium Chloride 0.9% 2 ML Flush BID IV.FLUSH SCH (09:22)
--- NOTE | 2018-03-21 11:28 | P.PN ---
Subjective Interval history: Is in bed appears in not acute distress. Less headaches. No back pain. No change in vision. Denies fever or chills. No nausea or vomiting he is able to eat. Feels comfortable to go home. With multiple questions all answered to best of my ability. Physical Exam Vital signs: Vital Signs 03/20/18 12:04 03/20/18 16:12 03/20/18 18:00 Temperature 98.2 F 99.1 F 98.5 F Pulse Rate 70 68 65 Respiratory Rate 18 19 Blood Pressure 136/75 135/65 171/89 H Pulse Oximetry 98 97 97 03/20/18 20:00 03/21/18 00:00 03/21/18 08:00 Temperature 97.7 F 98.0 F 98.0 F Pulse Rate 73 63 68 Respiratory Rate 18 18 16 Blood Pressure 174/76 H 113/58 L 136/80 Pulse Oximetry 97 95 99 Intake & Output 03/20/18 03/21/18 03/21/18 18:59 06:59 18:59 Intake Total 550 / 550 570 / 570 150 / 150 Balance 550 / 550 570 / 570 150 / 150 Weight 85.9 kg Intake: IV 550 / 550 450 / 450 150 / 150 NS Inj 1,000 ML @ 50 mls/hr IV. 400 / 400 CONT .Q20H E[facility] Rx#:[id number] Zovirax Inj 855 MG In NS Inj 150 / 150 450 / 450 150 / 150 150 ML @ 167.1 mls/hr IV.SIG Q8H EZIO Rx#:[id number] Oral 120 / 120 Other: # Voids 1 2 Narrative: GENERAL: very pleasant 62 yo male, well nourished, well developed patient, appears in nad. HEAD: No neck rigidity. Atraumatic. Normocephalic. EYES: Pupils equal and round. No scleral icterus. No injection or drainage. ENT: No nasal bleeding or discharge. Mucous membranes pink and moist. NECK: Trachea midline. No JVD. CARDIOVASCULAR: Regular rate and rhythm. RESPIRATORY: No accessory muscle use. Clear to auscultation. Breath sounds equal bilaterally. GASTROINTESTINAL: Abdomen soft, non-tender, nondistended. Hepatic and splenic margins not palpable. MUSCULOSKELETAL: Extremities without clubbing, cyanosis, or edema. No obvious deformities. NEUROLOGICAL: Awake and alert. No obvious cranial nerve deficits. Motor grossly within normal limits. Five out of 5 muscle strength in the arms and legs. Normal speech. No back pain Kernig sign is negative PSYCHIATRIC: Appropriate mood and affect; insight and judgment normal. Results - Labs CBC & Chem 7: 03/20/18 04:30 03/20/18 04:30 Microbiology 03/19/18 10:43 Blood - Peripheral Aerobic Blood Culture - Preliminary No growth in 2 days 03/19/18 10:43 Blood - Peripheral Anaerobic Blood Culture - Preliminary No growth in 2 days 03/19/18 10:37 Blood - Peripheral Aerobic Blood Culture - Preliminary No growth in 2 days 03/19/18 10:37 Blood - Peripheral Anaerobic Blood Culture - Preliminary No growth in 2 days 03/18/18 17:15 Lumbar Puncture Gram Stain - Final 03/18/18 17:15 Lumbar Puncture CSF Culture - Final No growth in 72 hours 03/18/18 16:15 Blood - Peripheral Malaria Smear ([facility]) - Final Assessment and Plan - Assessment (1) Viral meningitis Code(s): A87.9 - Viral meningitis, unspecified Status: Acute (2) Elevated blood pressure reading Code(s): R03.0 - Elevated blood-pressure reading, without diagnosis of hypertension Status: Acute - Plan 62-year-old male with no significant past medical history admitted for inpatient management of suspected viral meningitis, HD#3 1.Viral meningitis - PCR HSVII + in CSF -CT brain with no acute findings -CT lumbar spine with no acute findings -Leukocytosis on admission with -CSF Findings: Elevated WBCs, RBCs on CSF with elevated total protein -CSF Cx: NG @24hrs, Gram stain many WBC's, no organisms -Neg Malaria smear (pre-[place]) -Pending further serology -Cont. Acyclovir IV Q8hrs. Switch to PO per ID recommendations Dr Pearson -Tylenol w/ Codeine Qh6rs PRN pain (patient declines Morphine but does not want plain APAP) -Bld Cx ntd -Neurology and Infectious Disease consulted, appreciate assistance with mgmt 2. Elevated BP: improved overnight -No previous Hx, not on meds -Will cont. to monitor 3. Leukocytosis: resolved WBC 11.6 on admission, 9.4 today Due to Meningitis Bld Cx pending 4. DVT PPX: SCD's 5. Dispo: F/U serology and ID/Neuro reccs Code Status: full Discussed Condition With: patient, nurse The patient improved discharge home in stable condition to follow-up with PCP and consultants as outpatient.
--- NOTE | 2018-03-21 12:01 | P.DS ---
Date of admission: 03/18/18 23:06 Primary care physician: No Primary Care Physician Brief History from admission: 52-year-old male with a history of meningitis in 1994 who presents with onset of progressively worsening headache described as throbbing whole head pain radiating down his back. He also endorses light sensitivity, subjective fevers since last night. He reports generalized weakness as well as weakness in bilateral legs. No focal symptoms. DS: Diagnosis - Discharge Diagnosis (1) Viral meningitis Status: Acute (2) Elevated blood pressure reading Status: Acute DS: Medications - Discharge Medications Prescriptions: acyclovir [Zovirax] 800 mg PO TID 14 Days #168 cap DS: Summary Hospital Course: 62-year-old male with no significant past medical history admitted for inpatient management of suspected viral meningitis 1.Viral meningitis - PCR HSVII + in CSF -CT brain with no acute findings -CT lumbar spine with no acute findings -Leukocytosis on admission with -CSF Findings: Elevated WBCs, RBCs on CSF with elevated total protein -CSF Cx: NG @24hrs, Gram stain many WBC's, no organisms -Neg Malaria smear (pre-[place]) -Pending further serology -Cont. Acyclovir IV Q8hrs. Switch to PO per ID recommendations Dr Pearson -Tylenol w/ Codeine Qh6rs PRN pain (patient declines Morphine but does not want plain APAP) -Bld Cx ntd -Neurology and Infectious Disease consulted, appreciate assistance with mgmt 2. Elevated BP: improved overnight -No previous Hx, not on meds -Will cont. to monitor 3. Leukocytosis: resolved WBC 11.6 on admission, 9.4 today Due to Meningitis Bld Cx pending 4. DVT PPX: SCD's 5. F/U serology and ID/Neuro reccs The patient improved discharge home in stable condition to follow-up with PCP and consultants as outpatient. - Time Spent with Patient Total time spent providing and/or coordinating discharge services: Greater than 30 minutes - Quality: VTE Deep Vein Thrombosis/Pulmonary Embolism Present on Admission: No Exam Vital signs: Vital Signs 03/20/18 12:04 03/20/18 16:12 03/20/18 18:00 Temperature 98.2 F 99.1 F 98.5 F Pulse Rate 70 68 65 Respiratory Rate 18 18 19 Blood Pressure 136/75 135/65 171/89 H Pulse Oximetry 98 97 97 03/20/18 20:00 03/21/18 00:00 03/21/18 08:00 Temperature 97.7 F 98.0 F 98.0 F Pulse Rate 73 63 68 Respiratory Rate 18 18 16 Blood Pressure 174/76 H 113/58 L 136/80 Pulse Oximetry 97 95 99 Intake & Output 03/20/18 03/21/18 03/21/18 18:59 06:59 18:59 Intake Total 550 / 550 570 / 570 150 / 150 Balance 550 / 550 570 / 570 150 / 150 Weight 85.9 kg Intake: IV 550 / 550 450 / 450 150 / 150 NS Inj 1,000 ML @ 50 mls/hr IV. 400 / 400 CONT .Q20H [facility] Rx#:[id number] Zovirax Inj 855 MG In NS Inj 150 / 150 450 / 450 150 / 150 150 ML @ 167.1 mls/hr IV.SIG Q8H E[facility] Rx#:[id number] Oral 120 / 120 Other: # Voids 1 2 Narrative: GENERAL: very pleasant 62 yo male, well nourished, well developed patient, appears in nad. HEAD: No neck rigidity. Atraumatic. Normocephalic. EYES: Pupils equal and round. No scleral icterus. No injection or drainage. ENT: No nasal bleeding or discharge. Mucous membranes pink and moist. NECK: Trachea midline. No JVD. CARDIOVASCULAR: Regular rate and rhythm. RESPIRATORY: No accessory muscle use. Clear to auscultation. Breath sounds equal bilaterally. GASTROINTESTINAL: Abdomen soft, non-tender, nondistended. Hepatic and splenic margins not palpable. MUSCULOSKELETAL: Extremities without clubbing, cyanosis, or edema. No obvious deformities. NEUROLOGICAL: Awake and alert. No obvious cranial nerve deficits. Motor grossly within normal limits. Five out of 5 muscle strength in the arms and legs. Normal speech. No back pain Kernig sign is negative PSYCHIATRIC: Appropriate mood and affect; insight and judgment normal. Results Procedures completed during hospitalization: LP Labs on day of discharge: Labs from last 24 hours 03/20/18 16:44 HSV I IgG Ab Pending HSV I IgM Ab (IFA) Pending HSV II IgG Pending HSV II IgM Ab (IFA) Pending Preliminary micro results at discharge 03/19/18 10:43 Aerobic Blood Culture - Preliminary Blood - Peripheral No growth in 2 days Anaerobic Blood Culture - Preliminary No growth in 2 days 03/19/18 10:37 Aerobic Blood Culture - Preliminary Blood - Peripheral No growth in 2 days Anaerobic Blood Culture - Preliminary No growth in 2 days - Impressions ITS Impressions Head CT 03/18/18 15:19 CONCLUSION: 1. Unremarkable examination. . Lumbar Spine CT 03/18/18 15:19 CONCLUSION: 1. Mild degenerative disc disease. 2. No evidence of focal disc herniation, spinal stenosis or neural foraminal encroachment. 3. No evidence of acute bony abnormality 4. Mild chronic appearing compression deformity T12. Thoracic Spine MRI 03/20/18 00:00 CONCLUSION: 1. No abnormal contrast enhancement or cord signal abnormality. 2. Multilevel degenerative spondylosis with primarily left-sided paracentral disc protrusions and osteophytes resulting in effacement of the left lateral recess most prominently at T6-7 with mass effect on the cord but no significant cord edema. 3. Please see above for detailed description of each level. Discharge Plan - Discharge Disposition Patient Disposition: 01 Discharge Home - Discharge Condition Condition: Stable - Discharge Order Discharge Orders: Discharge Order (Routine); Ordered 03/21/18 Ordered By: Amy Guillaume - Discharge Details Anticipated Discharge Date: 03/21/18 - Physicians Team Primary Care Provider: Primary Care Devorai,Deysi Attending Provider: Amy Guillaume Other Providers: Rhea Pearson MD ; Percy Clemons MD
[2018-03-21 12:15] VITALS: BP 148/82; PULSE 63; O2SAT 97
[2018-03-21] MEDS: Sod Chloride 0.9% Inj 1,000 ML IV.CONT SCH (12:33)
[2018-03-21 23:53] LABS: N Meningitidis B/EColi K1 Not Detected (Not Detected)
[2018-03-22 00:57] LABS: HSV 1 IgG Negative (Negative); HSV 2 IgG Positive (Negative)
[2018-03-24 23:51] LABS: HSV 1 IgM by IFA NEGATIVE; HSV 2 IgM by IFA NEGATIVE
== END 2018-03-21 15:10 | disposition home or self-care (01) ==
LOC: NEPD 13:57 → NEDA 13:57 → NEPFCDU 03-19 02:45 → N07 03-20 17:42
PROVIDERS: ADMIT Hospitalist; ATTEND Hospitalist